=== PATIENT | male | born 1985 | race Two or more races ===

== ENCOUNTER 2024-06-06 16:54 | Emergency (ER) | payer OTHER ==
[~2024-06-06] VITALS: Ht 172.7 cm; Wt 73.0 kg
[2024-06-06 20:48] VITALS: BP 131/70; PULSE 60; RESP 16; TEMP 98.4; O2SAT 100
[2024-06-06] MEDS ORDERED: IBUP-1456 PO (20:49)
== END 2024-06-06 20:59 | disposition home or self-care (01) ==
LOC: ER 16:54
DX: S20.211A Contusion of right front wall of thorax, initial encounter (principal); W18.09XA Striking against other object with subsequent fall, initial encounter; Y93.89 Activity, other specified; Y92.89 Other specified places as the place of occurrence of the external cause; Y99.8 Other external cause status
CPT/HCPCS: 71101

== ENCOUNTER 2025-08-03 06:46 | Emergency (ER) | payer OTHER ==
[~2025-08-03] VITALS: Ht 172.7 cm; Wt 72.1 kg
[~2025-08-03 06:46] MED LIST: IBUP-1456 PO
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
--- NOTE | 2025-08-03 08:43 | DVH ---
CLINICAL INDICATION: INJURY TECHNIQUE: AP and lateral views of the left lower leg were performed. XY L TIB FIB XRAY Comparison: None FINDINGS/IMPRESSION: 1. No acute fracture of the left tibia or fibula. 2. Mild soft tissue swelling of the distal aspect of the left lower leg medially. No radiopaque forei gn bodies are identified in the soft tissues.
[2025-08-03] MEDS ORDERED: CEPH500C PO (08:53)
[2025-08-03] MEDS ORDERED: NAPR-746 PO (08:53)
[2025-08-03 09:07] VITALS: BP 112/70; PULSE 72; RESP 18; TEMP 98.3; O2SAT 97
== END 2025-08-03 09:08 | disposition home or self-care (01) ==
LOC: ER 06:46
DX: S81.832A Puncture wound without foreign body, left lower leg, initial encounter (principal); S80.12XA Contusion of left lower leg, initial encounter; X58.XXXA Exposure to other specified factors, initial encounter; Y93.89 Activity, other specified; Y92.410 Unspecified street and highway as the place of occurrence of the external cause; Y99.8 Other external cause status
CPT/HCPCS: 73590